=== PATIENT | male | born 1975 | race Caucasian/White ===

== ENCOUNTER 2019-12-10 10:15 | Emergency (ER) | payer SELFPAY ==
[2019-12-10 10:42] VITALS: BP 131/75; PULSE 94; TEMP 98.1; BMI 18.6
--- NOTE | 2019-12-10 11:02 | PDOC ---
History of Present Illness - General Chief Complaint: Injury Stated Complaint: INJURY Time Seen by Provider: 12/10/19 10:52 History Source: Patient Exam Limitations: No Limitations - History of Present Illness Initial Comments: 12/10/19 10:57 Patient is a 44-year-old male who presents to the ED with a right wrist/hand injury that he sustained yesterday while at work. He states he fell landing backward on his wrist. He states yesterday his wrist was hurting him but this morning it began hurting worse. He took aspirin this morning with little relief. The patient is an insulin-dependent diabetic and denies other past medical history. He denies any allergies to medications. Past History - Past Medical History Allergies/Adverse Reactions: Allergies Allergy/AdvReac Type Severity Reaction Status Date / Time No Known Allergies Allergy Verified 12/10/19 10:29 Home Medications: Ambulatory Orders Insulin Admin. Supplies [[employer]] 1 each SQ ASDIR 12/10/19 - Psycho Social/Smoking Cessation Hx Smoking History: Never smoked Review of Systems - Review of Systems Comments:: 12/10/19 10:59 - Review of Systems Able to Perform ROS?: Yes Constitutional: No: Fever, Chills, Loss of Appetite, Night Sweats, Weakness Respiratory: No: Cough, Shortness of Breath, Wheezing, Sputum Production Cardiac (ROS): No: Chest Pain, Chest Tightness, Palpitations, Irregular Heart Beat, Edema ABD/GI: No: Nausea, Vomiting, Abdominal Pain, Diarrhea : No Dysuria, No Hematuria, No Frequency, No Urgency Musculoskeletal: No: Muscle Pain, Back Pain, Muscle Weakness, Neck Pain; R wrist /hand injury Integumentary: No: Lesions, Rash Neurological: No: Headache, Numbness, Tingling, Weakness, Speech Difficulties *Physical Exam - Vital Signs Last Vital Signs Temp Pulse Resp BP Pulse Ox 98.1 F 94 H 18 131/75 99 12/10/19 10:31 12/10/19 10:31 12/10/19 10:31 12/10/19 10:31 12/10/19 10:31 - Physical Exam 12/10/19 10:59 - Physical Exam General Appearance: Nourished, Appropriately Dressed, No Distress Neck: Supple, No Lymphadenopathy (R), No Lymphadenopathy (L), No Rigidity, No Decreased range of motion Respiratory/Chest: Lungs Clear, Normal Breath Sounds. No Respiratory Distress, No Accessory Muscle Use Cardiovascular: Regular Rhythm, Regular Rate, S1, S2 Musculoskeletal: Normal Inspection. R hand tenderness to the dorsum of the hand on the radial side. There is some tenderness over the anatomical snuffbox. Patient can move all fingers freely. Brisk capillary refill distally. Sensation intact to the radial, median and ulnar nerve distributions. Extremity: Normal Capillary Refill, Normal Inspection Integumentary: Normal Color, Dry. 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 Plan: -Right hand/wrist x-rays -Will reassess 12/10/19 11:21 The patient's x-rays were read as no acute fracture but there is a subtle lucency in the middle third of the scaphoid with a bony step-off appreciated. I suspect that there is a scaphoid fracture. We will place the patient in a thumb spica splint and have him follow-up with hand surgery. He understands and agrees with this treatment plan and the patient stable for discharge. Discharge - Discharge Information Problems reviewed: Yes Clinical Impression/Diagnosis: Nondisplaced fracture of right scaphoid bone Qualifiers: Encounter type: initial encounter Scaphoid bone location: middle third Fracture type: closed Qualified Code(s): S62.024A - Nondisplaced fracture of middle third of navicular [scaphoid] bone of right wrist, initial encounter for closed fracture Condition: Stable Disposition: HOME - Follow up/Referral Referrals: Gerry Merida MD [Staff Physician] - 1 week - Patient Discharge Instructions Patient Printed Discharge Instructions: Wrist Fracture Additional Instructions: You potentially have a fracture in your right wrist called a scaphoid fracture. You have been placed in a splint and you must wear the splint until you follow -up with orthopedics. An orthopedic referral has been given to you today. Avoid getting the splint wet. Print Language: ESTONIAN - Post Discharge Activity Work/Back to School Note: Back to Work
== END 2019-12-10 11:50 | disposition home or self-care (01) ==
LOC: JER 10:15 → JERFT 10:15
PROC: 2W3DX1Z Immobilization of Left Lower Arm using Splint (ICD-10-PCS; principal; 2019-12-10)
DX: S62.024A Nondisplaced fracture of middle third of navicular [scaphoid] bone of right wrist, initial encounter for closed fracture (principal); W18.39XA Other fall on same level, initial encounter; Y93.89 Activity, other specified; Y92.512 Supermarket, store or market as the place of occurrence of the external cause; Y99.0 Civilian activity done for income or pay
CPT/HCPCS: 73110-TC-RT-FY; 73130-TC-RT-FY; 99282-25